=== PATIENT | male | born 1990 | race Caucasian/White ===

== ENCOUNTER 2016-12-28 20:16 | Emergency (ER) | payer SELFPAY ==
[~2016-12-28] VITALS: Ht 170.2 cm; Wt 66.0 kg
[2016-12-28 20:29] VITALS: BP 113/72
== END 2016-12-29 04:31 | disposition left against medical advice (07) ==
LOC: ER 12-29 04:24
DX: Z53.21 Procedure and treatment not carried out due to patient leaving prior to being seen by health care provider (principal)